=== PATIENT | female | born 1945 | race African-American/Black ===

== ENCOUNTER 2023-06-12 13:52 | Inpatient (IN) | payer OTHER, BC ==
[2023-06-12] MEDS ORDERED: ACETAMINOPHEN INJECTION 100 ML IVPB ONE (16:00)
[2023-06-12] MEDS ORDERED: PIPERACILLIN/TAZOB 3.375 GM 3.375 GM/50 ML BAG IVPB ONE (16:01)
[2023-06-12] MEDS: ACETAMINOPHEN 1000 MG/100 ML BAG IVPB ONE (16:08)
[2023-06-12] MEDS: SODIUM CHLORIDE IV ONE (16:09)
[2023-06-12] MEDS: PIPERACILLIN/TAZOB 3.375 GM 3.375 GM in DEXTROSE 5%-WATER - 50 ML IVPB ONE (16:09)
[2023-06-12 16:11] LABS: HEMATOCRIT 20.5 % (32.4-45.2); MCH 26.6 pg (25.7-33.7); MCHC 31.4 g/dl (32.0-36.0); MEAN CELL VOLUME 84.8 fl (80-96); MEAN PLT VOLUME 8.3 fl (7.5-11.1); PLATELET COUNT 374 10^3/uL (134-434); RBC 2.42 M/mm3 (3.60-5.2); RDW 18.9 % (11.6-15.6)
[2023-06-12 16:21] LABS: CHLORIDE 99 mmol/L (98-107); POTASSIUM 3.8 mmol/L (3.5-5.1); SODIUM 134 mmol/L (136-145)
[2023-06-12 16:22] LABS: INR 2.56 (0.83-1.09); PROTHROMBIN TIME (PATIENT) 29.4 SEC (9.7-13.0)
[2023-06-12 16:23] LABS: ALBUMIN 1.5 g/dl (3.4-5.0); CALCIUM 8.6 mg/dL (8.5-10.1); GLUCOSE,RANDOM 111 mg/dL (74-106)
[2023-06-12 16:24] LABS: ACTIVATED PTT 29.7 SECONDS (25.2-36.5); HEMOGLOBIN 6.4 GM/dL (10.7-15.3)
[2023-06-12 16:25] LABS: ANION GAP 12 mmol/L (4-13); CO2 23 mmol/L (21-32)
[2023-06-12 16:26] LABS: SGPT/ALT 87 U/L (13-61)
[2023-06-12 16:27] LABS: CREATININE 2.1 mg/dL (0.55-1.3); SGOT/AST 160 U/L (15-37)
[2023-06-12 16:28] LABS: BILIRUBIN,TOTAL 0.8 mg/dL (0.2-1); TOT PROT 7.2 g/dl (6.4-8.2)
[2023-06-12 16:29] LABS: ALK PHOS 326 U/L (45-117)
[2023-06-12 16:42] LABS: LACTIC ACID 2.9 mmol/L (0.4-2.0)
[2023-06-12 16:42] LABS: BLOOD UREA NITROGEN 172.8 mg/dL (7-18)
[2023-06-12 18:14] LABS: ANISOCYTOSIS 2+; MACROCYTOSIS 1+; OVALOCYTE 1+; TARGET CELLS 0
[2023-06-12] MEDS ORDERED: VANCOMYCIN 1 GRAM (PRE-DOCKED) 1,000 MG/250 ML BAG IVPB ONE (18:36)
[2023-06-12] MEDS ORDERED: PANTOPRAZOLE SODIUM 40 MG VIAL ONE (18:36)
[2023-06-12] MEDS: PANTOPRAZOLE SODIUM 80 MG in SODIUM CHLORIDE 100 ML IVPB SCH (18:43)
[2023-06-12] MEDS: VANCOMYCIN 1,000 MG in DEXTROSE 5%-WATER - 250 ML IVPB ONE (19:09)
[2023-06-12] MEDS ORDERED: COLLAGENASE CLOSTRIDIUM HIST. 30 GRAMS TUBE TP SCH (19:30)
[2023-06-13] MEDS ORDERED: levETIRAcetam 500 MG/5 ML INJECTION VIAL IVPB ONE ×2 (00:55→10:30)
[2023-06-13] MEDS: SODIUM CHLORIDE 1,000 ML IV SCH (01:05)
[2023-06-13] MEDS: INSULIN ASPART SLIDING SCALE (NOVOLOG) 1 VIAL SQ SCH (01:05)
[2023-06-13] MEDS: levETIRAcetam 500 MG/5 ML INJECTION VIAL IVPB SCH (01:05)
[2023-06-13 01:16] LABS: LACTIC ACID 3.2 mmol/L (0.4-2.0)
[2023-06-13] MEDS ORDERED: PIPERACILLIN/TAZOB 2.25 GM 2.25 GM in DEXTROSE 5%-WATER - 50 ML IVPB SCH (02:00)
[2023-06-13] MEDS ORDERED: PIPERACILLIN/TAZOB 2.25 GM 2.25 GM/50 ML BAG IVPB ONE ×3 (04:40→18:55)
[2023-06-13] MEDS: PIPERACILLIN/TAZOB 2.25 GM 2.25 GM in DEXTROSE 5%-WATER - 50 ML IVPB SCH (04:44)
[2023-06-13] MEDS ORDERED: PANTOPRAZOLE SODIUM 40 MG VIAL ONE (04:47)
[2023-06-13 05:56] LABS: EPI CELLS >36 /uL (0-25.1); HYALINE CASTS 2 /uL (0-3.1); URINE APPEARANCE TURBID; URINE BILIRUBIN 1+ (NEGATIVE); URINE COLOR ORANGE; URINE GLUCOSE (UA) NEGATIVE (NEGATIVE); URINE KETONE NEGATIVE (NEGATIVE); URINE LEUK ESTERASE 3+ (NEGATIVE); URINE NITRITE NEGATIVE (NEGATIVE); URINE PROTEIN 2+ (NEGATIVE); URINE WBC 190 /uL (0-25.8)
[2023-06-13 06:46] LABS: HEMATOCRIT 22.3 % (32.4-45.2); HEMOGLOBIN 7.3 GM/dL (10.7-15.3); MCH 27.9 pg (25.7-33.7); MCHC 32.6 g/dl (32.0-36.0); MEAN CELL VOLUME 85.5 fl (80-96); MEAN PLT VOLUME 7.8 fl (7.5-11.1); PLATELET COUNT 316 10^3/uL (134-434); RBC 2.61 M/mm3 (3.60-5.2); RDW 17.2 % (11.6-15.6); WHITE BLOOD COUNT 10.8 K/mm3 (4.0-10.0)
[2023-06-13 06:48] LABS: INR 2.58 (0.83-1.09); PROTHROMBIN TIME (PATIENT) 29.7 SEC (9.7-13.0)
[2023-06-13 07:30] LABS: CHLORIDE 103 mmol/L (98-107); POTASSIUM 3.4 mmol/L (3.5-5.1); SODIUM 139 mmol/L (136-145)
[2023-06-13 07:38] LABS: CALCIUM 8.2 mg/dL (8.5-10.1)
[2023-06-13 07:39] LABS: ALBUMIN 1.3 g/dl (3.4-5.0); ANION GAP 14 mmol/L (4-13); CO2 22 mmol/L (21-32); GLUCOSE,RANDOM 93 mg/dL (74-106); MAGNESIUM 2.7 mg/dL (1.8-2.4)
[2023-06-13 07:40] LABS: CREATININE 1.8 mg/dL (0.55-1.3)
[2023-06-13 07:41] LABS: SGOT/AST 106 U/L (15-37)
[2023-06-13 07:42] LABS: BILIRUBIN,TOTAL 0.7 mg/dL (0.2-1); PHOSPHOROUS 3.2 mg/dL (2.5-4.9); SGPT/ALT 71 U/L (13-61)
[2023-06-13 07:54] LABS: ALK PHOS 226 U/L (45-117)
[2023-06-13 08:18] LABS: BLOOD UREA NITROGEN 184.2 mg/dL (7-18)
[2023-06-13 09:29] LABS: ANISOCYTOSIS 0; MACROCYTOSIS 0
[2023-06-13] MEDS ORDERED: VANCOMYCIN 750 MG in DEXTROSE 5%-WATER - 150 ML IVPB SCH (10:00)
[2023-06-13] MEDS: VANCOMYCIN/WATER FOR INJ (PEG) 750 MG/150 ML BAG IVPB SCH (11:20)
[2023-06-13 14:50] LABS: URINE BACTERIA 38.9 /uL (0-1359); URINE CRYSTALS CA OXALATE MANY /hpf; URINE RBC 290 /uL (0-23.9)
[2023-06-13] MEDS: POLYETHYLENE GLYCOL (HEALTHYLAX) 3350 17 GM PACKET PEG SCH (15:00)
[2023-06-14] MEDS: PIPERACILLIN/TAZOB 2.25 GM 2.25 GM in DEXTROSE 5%-WATER - 50 ML IVPB SCH (01:13)
[2023-06-14 08:56] LABS: HEMATOCRIT 19.7 % (32.4-45.2); MCH 27.7 pg (25.7-33.7); MCHC 32.9 g/dl (32.0-36.0); MEAN CELL VOLUME 84.1 fl (80-96); MEAN PLT VOLUME 7.7 fl (7.5-11.1); PLATELET COUNT 304 10^3/uL (134-434); RBC 2.35 M/mm3 (3.60-5.2); RDW 16.9 % (11.6-15.6); WHITE BLOOD COUNT 11.2 K/mm3 (4.0-10.0)
[2023-06-14 09:02] LABS: HEMOGLOBIN 6.5 GM/dL (10.7-15.3)
[2023-06-14 09:15] LABS: CHLORIDE 104 mmol/L (98-107); SODIUM 138 mmol/L (136-145)
[2023-06-14 09:18] LABS: CALCIUM 7.9 mg/dL (8.5-10.1); CO2 22 mmol/L (21-32); GAMMA GLUTAMYL TRANSPEPTIDASE 34 U/L (5-85); GLUCOSE,RANDOM 81 mg/dL (74-106)
[2023-06-14 09:19] LABS: ALBUMIN 1.3 g/dl (3.4-5.0)
[2023-06-14 09:21] LABS: IRON SERUM 29 ug/dL (50-175)
[2023-06-14 09:22] LABS: CREATININE 1.7 mg/dL (0.55-1.3); SGOT/AST 97 U/L (15-37); SGPT/ALT 72 U/L (13-61)
[2023-06-14 09:23] LABS: BILIRUBIN,TOTAL 0.8 mg/dL (0.2-1); TOTAL IRON BINDING CAPACITY 134 ug/dL (250-450)
[2023-06-14 10:00] LABS: ALK PHOS 193 U/L (45-117); ANION GAP 12 mmol/L (4-13); BLOOD UREA NITROGEN 161.5 mg/dL (7-18); POTASSIUM 2.9 mmol/L (3.5-5.1)
[2023-06-14] MEDS ORDERED: KCL 20 MEQ PREMIX BAG 20 MEQ/100 ML INFUS.BAG IVPB SCH (10:30)
[2023-06-14 10:31] LABS: ANISOCYTOSIS 2+; MACROCYTOSIS 0
[2023-06-14] MEDS: PANTOPRAZOLE SODIUM 40 MG VIAL IVPUSH SCH (10:47)
[2023-06-14] MEDS: POTASSIUM CHLORIDE ORAL LIQUID 20 MEQ/15 ML PO ONE (11:28)
[2023-06-14] MEDS: DEXTROSE 5%-NORMAL SALINE 1,000 ML IV SCH (13:48)
[2023-06-14] MEDS: AMINO ACIDS/PROTEIN HYDROLYS 30 ML LIQUID.PKT GT SCH (14:28)
[2023-06-14] MEDS: VITAMIN B COMP W-C 1 EA TABLET (NEPHRO-VITE) GT SCH (14:28)
[2023-06-14 18:57] LABS: BASO % 0.2 % (0-2.0); EOS % 2.1 % (0-4.5); HEMATOCRIT 22.7 % (32.4-45.2); HEMOGLOBIN 7.4 GM/dL (10.7-15.3); LYMPH % 3.8 % (8-40); MCH 27.6 pg (25.7-33.7); MCHC 32.6 g/dl (32.0-36.0); MEAN CELL VOLUME 84.6 fl (80-96); MEAN PLT VOLUME 7.4 fl (7.5-11.1); NEUT % 87.9 % (42.8-82.8); PLATELET COUNT 276 10^3/uL (134-434); RBC 2.68 M/mm3 (3.60-5.2); RDW 16.3 % (11.6-15.6)
[2023-06-14 19:55] LABS: ANISOCYTOSIS 1+; MACROCYTOSIS 1+; OVALOCYTE 1+; TEAR DROP CELLS 1+
[2023-06-14 20:01] LABS: PLATELET ESTIMATE ADEQUATE
[2023-06-14] MEDS: POTASSIUM CHLORIDE ORAL LIQUID 20 MEQ/15 ML PO SCH (22:31)
[2023-06-15 10:17] LABS: CHLORIDE 107 mmol/L (98-107); POTASSIUM 3.5 mmol/L (3.5-5.1); SODIUM 138 mmol/L (136-145)
[2023-06-15 10:25] LABS: ALBUMIN 1.2 g/dl (3.4-5.0); ANION GAP 11 mmol/L (4-13); CALCIUM 7.4 mg/dL (8.5-10.1); CO2 20 mmol/L (21-32); GLUCOSE,RANDOM 147 mg/dL (74-106)
[2023-06-15 10:29] LABS: CREATININE 1.7 mg/dL (0.55-1.3); SGOT/AST 89 U/L (15-37); SGPT/ALT 70 U/L (13-61)
[2023-06-15 10:30] LABS: BILIRUBIN,TOTAL 0.9 mg/dL (0.2-1); TOT PROT 5.7 g/dl (6.4-8.2)
[2023-06-15 10:31] LABS: ALK PHOS 215 U/L (45-117)
[2023-06-15 10:52] LABS: BLOOD UREA NITROGEN 177.1 mg/dL (7-18)
[2023-06-15] MEDS: DEXTROSE 5%-NORMAL SALINE 1,000 ML IV SCH (16:19)
[2023-06-15] MEDS: POLYETHYLENE GLYCOL (HEALTHYLAX) 3350 17 GM PACKET PEG SCH (21:41)
[2023-06-16 09:24] LABS: CHLORIDE 112 mmol/L (98-107); POTASSIUM 3.8 mmol/L (3.5-5.1); SODIUM 143 mmol/L (136-145)
[2023-06-16 09:37] LABS: ALBUMIN 1.3 g/dl (3.4-5.0); ANION GAP 10 mmol/L (4-13); CALCIUM 7.7 mg/dL (8.5-10.1); CO2 21 mmol/L (21-32); GLUCOSE,RANDOM 146 mg/dL (74-106); HEMATOCRIT 21.8 % (32.4-45.2); HEMOGLOBIN 7.1 GM/dL (10.7-15.3); MAGNESIUM 2.8 mg/dL (1.8-2.4); MCH 28.1 pg (25.7-33.7); MCHC 32.5 g/dl (32.0-36.0); MEAN CELL VOLUME 86.4 fl (80-96); MEAN PLT VOLUME 7.7 fl (7.5-11.1); PLATELET COUNT 296 10^3/uL (134-434); RBC 2.53 M/mm3 (3.60-5.2); RDW 16.7 % (11.6-15.6); WHITE BLOOD COUNT 11.8 K/mm3 (4.0-10.0)
[2023-06-16 09:38] LABS: SGOT/AST 73 U/L (15-37); SGPT/ALT 66 U/L (13-61)
[2023-06-16 09:40] LABS: CREATININE 1.5 mg/dL (0.55-1.3)
[2023-06-16 09:42] LABS: BILIRUBIN,TOTAL 0.7 mg/dL (0.2-1); TOT PROT 5.9 g/dl (6.4-8.2)
[2023-06-16 10:07] LABS: ALK PHOS 260 U/L (45-117); BLOOD UREA NITROGEN 162.3 mg/dL (7-18)
[2023-06-16 11:50] LABS: ANISOCYTOSIS 0; HELMET CELLS 0; HOWELL-JOLLY BODIES 0; MACROCYTOSIS 0; OVALOCYTE 0; ROULEAU 0; SICKELED CELLS 0; TARGET CELLS 0; TEAR DROP CELLS 0; TOXIC GRANULATION 0
[2023-06-17 08:47] LABS: HEMATOCRIT 26.5 % (32.4-45.2); HEMOGLOBIN 8.9 GM/dL (10.7-15.3); MCH 28.5 pg (25.7-33.7); MCHC 33.4 g/dl (32.0-36.0); MEAN CELL VOLUME 85.4 fl (80-96); MEAN PLT VOLUME 7.4 fl (7.5-11.1); PLATELET COUNT 314 10^3/uL (134-434); RBC 3.11 M/mm3 (3.60-5.2); RDW 17.5 % (11.6-15.6); WHITE BLOOD COUNT 10.3 K/mm3 (4.0-10.0)
[2023-06-17 09:10] LABS: CHLORIDE 117 mmol/L (98-107); POTASSIUM 4.4 mmol/L (3.5-5.1); SODIUM 146 mmol/L (136-145)
[2023-06-17 09:13] LABS: CALCIUM 7.6 mg/dL (8.5-10.1)
[2023-06-17 09:14] LABS: ALBUMIN 1.2 g/dl (3.4-5.0); ANION GAP 7 mmol/L (4-13); CO2 23 mmol/L (21-32); GLUCOSE,RANDOM 132 mg/dL (74-106); MAGNESIUM 2.8 mg/dL (1.8-2.4)
[2023-06-17 09:17] LABS: CREATININE 1.4 mg/dL (0.55-1.3); SGOT/AST 70 U/L (15-37); SGPT/ALT 66 U/L (13-61)
[2023-06-17 09:18] LABS: BILIRUBIN,TOTAL 0.6 mg/dL (0.2-1); TOT PROT 5.9 g/dl (6.4-8.2)
[2023-06-17 09:20] LABS: ALK PHOS 231 U/L (45-117)
[2023-06-17 09:22] LABS: BLOOD UREA NITROGEN 147.5 mg/dL (7-18)
[2023-06-17 10:59] LABS: ANISOCYTOSIS 0; HELMET CELLS 0; HOWELL-JOLLY BODIES 0; MACROCYTOSIS 0; OVALOCYTE 0; ROULEAU 0; SICKELED CELLS 0; TARGET CELLS 0; TEAR DROP CELLS 0; TOXIC GRANULATION 0
[2023-06-17] MEDS: TOBRAMYCIN 0.3% OPHTH SOLN 5 ML BOTTLE OU SCH (14:16)
[2023-06-17] MEDS: DEXTROSE 5%-0.45% SALINE 1,000 ML IV SCH (18:55)
[2023-06-17] MEDS: TETRAHYDROZOLINE HCL EYE DROPS OU SCH (19:06)
[2023-06-18] MEDS: POTASSIUM CHLORIDE ORAL LIQUID 20 MEQ/15 ML PO SCH (09:22)
[2023-06-18 09:25] LABS: BASO % 0.1 % (0-2.0); EOS % 0.3 % (0-4.5); HEMATOCRIT 31.5 % (32.4-45.2); LYMPH % 6.8 % (8-40); MCH 27.5 pg (25.7-33.7); MCHC 31.6 g/dl (32.0-36.0); MEAN CELL VOLUME 87.1 fl (80-96); MEAN PLT VOLUME 7.4 fl (7.5-11.1); MONO % 5.8 % (3.8-10.2); PLATELET COUNT 351 10^3/uL (134-434); RBC 3.62 M/mm3 (3.60-5.2); WHITE BLOOD COUNT 13.5 K/mm3 (4.0-10.0)
[2023-06-18 09:37] LABS: INR 1.44 (0.83-1.09); PROTHROMBIN TIME (PATIENT) 16.6 SEC (9.7-13.0)
[2023-06-18 09:56] LABS: CHLORIDE 120 mmol/L (98-107); POTASSIUM 4.3 mmol/L (3.5-5.1); SODIUM 149 mmol/L (136-145)
[2023-06-18 10:19] LABS: CALCIUM 8.1 mg/dL (8.5-10.1)
[2023-06-18 10:20] LABS: ALBUMIN 1.3 g/dl (3.4-5.0); ANION GAP 9 mmol/L (4-13); CO2 20 mmol/L (21-32); GLUCOSE,RANDOM 111 mg/dL (74-106); MAGNESIUM 2.5 mg/dL (1.8-2.4)
[2023-06-18 10:22] LABS: CREATININE 1.2 mg/dL (0.55-1.3); SGOT/AST 75 U/L (15-37); SGPT/ALT 75 U/L (13-61)
[2023-06-18 10:24] LABS: BILIRUBIN,TOTAL 0.5 mg/dL (0.2-1); TOT PROT 6.2 g/dl (6.4-8.2)
[2023-06-18 10:33] LABS: ALK PHOS 189 U/L (45-117); BLOOD UREA NITROGEN 129.6 mg/dL (7-18)
[2023-06-18] MEDS ORDERED: LIDOCAINE HCL 2% (20ML MULTI-DOSE VIAL) ONE (12:29)
[2023-06-18 16:04] VITALS: BMI 22.6
[2023-06-19 09:21] LABS: BASO % 0.2 % (0-2.0); EOS % 0.4 % (0-4.5); HEMATOCRIT 27.5 % (32.4-45.2); HEMOGLOBIN 8.9 GM/dL (10.7-15.3); MCH 28.2 pg (25.7-33.7); MCHC 32.4 g/dl (32.0-36.0); MEAN CELL VOLUME 87.1 fl (80-96); MEAN PLT VOLUME 7.5 fl (7.5-11.1); MONO % 6.1 % (3.8-10.2); NEUT % 85.3 % (42.8-82.8); PLATELET COUNT 311 10^3/uL (134-434); RBC 3.16 M/mm3 (3.60-5.2); RDW 18.2 % (11.6-15.6)
[2023-06-19 09:26] LABS: INR 1.47 (0.83-1.09)
[2023-06-19 10:09] LABS: CHLORIDE 120 mmol/L (98-107); POTASSIUM 4.5 mmol/L (3.5-5.1); SODIUM 148 mmol/L (136-145)
[2023-06-19 10:18] LABS: ALBUMIN 1.3 g/dl (3.4-5.0); ANION GAP 7 mmol/L (4-13); CALCIUM 7.6 mg/dL (8.5-10.1); CO2 21 mmol/L (21-32); MAGNESIUM 2.2 mg/dL (1.8-2.4)
[2023-06-19 10:19] LABS: GLUCOSE,RANDOM 139 mg/dL (74-106)
[2023-06-19 10:21] LABS: CREATININE 1.1 mg/dL (0.55-1.3)
[2023-06-19 10:22] LABS: SGOT/AST 72 U/L (15-37); SGPT/ALT 75 U/L (13-61)
[2023-06-19 10:23] LABS: BILIRUBIN,TOTAL 0.3 mg/dL (0.2-1); TOT PROT 6.1 g/dl (6.4-8.2)
[2023-06-19 10:25] LABS: ALK PHOS 175 U/L (45-117)
[2023-06-19 10:45] LABS: BLOOD UREA NITROGEN 106.5 mg/dL (7-18)
[2023-06-19] MEDS: TUBE FEED DECLOGGING SOLUTION 12,000 UNITS GT ONE (14:31)
[2023-06-19] MEDS: ARTIFICIAL TEARS OPHTHALMIC DROPS OU SCH (21:33)
[2023-06-19] MEDS: ATORVASTATIN CA 40 MG TABLET (FP) GT SCH (21:35)
[2023-06-19] MEDS: levETIRAcetam 500 MG/5 ML ORAL SOLUTION (UNIT-DOSE CUPS) GT SCH (21:35)
[2023-06-20] MEDS: LEVOTHYROXINE NA 50 MCG TABLET (FP) GT SCH (05:59)
[2023-06-20 08:40] LABS: BASO % 0.4 % (0-2.0); EOS % 0.6 % (0-4.5); HEMATOCRIT 29.3 % (32.4-45.2); HEMOGLOBIN 9.3 GM/dL (10.7-15.3); LYMPH % 8.7 % (8-40); MCH 27.9 pg (25.7-33.7); MCHC 31.8 g/dl (32.0-36.0); MEAN CELL VOLUME 87.8 fl (80-96); MEAN PLT VOLUME 7.4 fl (7.5-11.1); NEUT % 83.3 % (42.8-82.8); PLATELET COUNT 304 10^3/uL (134-434); RBC 3.34 M/mm3 (3.60-5.2); RDW 18.1 % (11.6-15.6); WHITE BLOOD COUNT 10.1 K/mm3 (4.0-10.0)
[2023-06-20 08:46] LABS: INR 1.51 (0.83-1.09); PROTHROMBIN TIME (PATIENT) 17.4 SEC (9.7-13.0)
[2023-06-20 09:31] LABS: POTASSIUM 3.9 mmol/L (3.5-5.1)
[2023-06-20 09:33] LABS: ALBUMIN 1.3 g/dl (3.4-5.0); BLOOD UREA NITROGEN 92.5 mg/dL (7-18); CALCIUM 8.2 mg/dL (8.5-10.1); MAGNESIUM 2.1 mg/dL (1.8-2.4)
[2023-06-20 09:36] LABS: CREATININE 0.9 mg/dL (0.55-1.3)
[2023-06-20 09:38] LABS: BILIRUBIN,TOTAL 0.5 mg/dL (0.2-1)
[2023-06-20] MEDS ORDERED: ONDANSETRON 4 MG/2 ML VIAL IVPUSH PRN ×2 (10:46→12:36)
[2023-06-20] MEDS ORDERED: DEXAMETHASONE SOD PHOSPHATE 4 MG/1 ML VIAL ONE (11:38)
[2023-06-20] MEDS ORDERED: ONDANSETRON 4 MG/2 ML VIAL ONE (11:38)
[2023-06-20] MEDS ORDERED: ACETAMINOPHEN INJECTION 100 ML IVPB ONE (11:39)
[2023-06-20] MEDS: DEXTROSE 5%-0.45% SALINE 1,000 ML IV SCH (13:05)
[2023-06-20] MEDS: TOBRAMYCIN 0.3% OPHTH SOLN 5 ML BOTTLE OU SCH (14:00)
[2023-06-20] MEDS: PIPERACILLIN/TAZOB 2.25 GM 2.25 GM in DEXTROSE 5%-WATER - 50 ML IVPB SCH (17:02)
[2023-06-20] MEDS: ATORVASTATIN CA 40 MG TABLET (FP) GT SCH (21:58)
[2023-06-20] MEDS: levETIRAcetam 500 MG/5 ML ORAL SOLUTION (UNIT-DOSE CUPS) GT SCH (21:58)
[2023-06-20] MEDS: POLYETHYLENE GLYCOL (HEALTHYLAX) 3350 17 GM PACKET PEG SCH (21:58)
[2023-06-20] MEDS: ARTIFICIAL TEARS OPHTHALMIC DROPS OU SCH (22:01)
[2023-06-20] MEDS: INSULIN ASPART SLIDING SCALE (NOVOLOG) 1 VIAL SQ SCH (22:19)
[2023-06-21] MEDS: LEVOTHYROXINE NA 50 MCG TABLET (FP) GT SCH (06:01)
[2023-06-21] MEDS: POTASSIUM CHLORIDE ORAL LIQUID 20 MEQ/15 ML PO SCH (09:26)
[2023-06-21] MEDS: AMINO ACIDS/PROTEIN HYDROLYS 30 ML LIQUID.PKT GT SCH (09:26)
[2023-06-21] MEDS: VITAMIN B COMP W-C 1 EA TABLET (NEPHRO-VITE) GT SCH (09:27)
[2023-06-21] MEDS: PANTOPRAZOLE SODIUM 40 MG VIAL IVPUSH SCH (09:27)
[2023-06-21 10:13] LABS: BASO % 0.1 % (0-2.0); EOS % 0.2 % (0-4.5); HEMATOCRIT 27.1 % (32.4-45.2); HEMOGLOBIN 8.5 GM/dL (10.7-15.3); LYMPH % 8.1 % (8-40); MCH 27.7 pg (25.7-33.7); MCHC 31.3 g/dl (32.0-36.0); MEAN CELL VOLUME 88.6 fl (80-96); MEAN PLT VOLUME 7.7 fl (7.5-11.1); NEUT % 84.6 % (42.8-82.8); PLATELET COUNT 279 10^3/uL (134-434); RBC 3.05 M/mm3 (3.60-5.2); RDW 18.4 % (11.6-15.6)
[2023-06-21 10:41] LABS: POTASSIUM 4.6 mmol/L (3.5-5.1)
[2023-06-21 10:46] LABS: CALCIUM 7.9 mg/dL (8.5-10.1)
[2023-06-21 10:47] LABS: ALBUMIN 1.2 g/dl (3.4-5.0); BLOOD UREA NITROGEN 84.4 mg/dL (7-18)
[2023-06-21 10:52] LABS: BILIRUBIN,TOTAL 0.3 mg/dL (0.2-1); TOT PROT 5.6 g/dl (6.4-8.2)
[2023-06-22 08:24] LABS: BASO % 0.3 % (0-2.0); EOS % 0.5 % (0-4.5); HEMATOCRIT 28.7 % (32.4-45.2); HEMOGLOBIN 9.4 GM/dL (10.7-15.3); LYMPH % 9.8 % (8-40); MCHC 32.9 g/dl (32.0-36.0); MEAN CELL VOLUME 88.1 fl (80-96); MEAN PLT VOLUME 7.8 fl (7.5-11.1); MONO % 5.6 % (3.8-10.2); NEUT % 83.8 % (42.8-82.8); PLATELET COUNT 301 10^3/uL (134-434); RBC 3.26 M/mm3 (3.60-5.2); RDW 18.2 % (11.6-15.6); WHITE BLOOD COUNT 9.1 K/mm3 (4.0-10.0)
[2023-06-22 09:11] LABS: POTASSIUM 4.6 mmol/L (3.5-5.1)
[2023-06-22 09:16] LABS: ALBUMIN 1.3 g/dl (3.4-5.0); BLOOD UREA NITROGEN 75.1 mg/dL (7-18); CALCIUM 7.9 mg/dL (8.5-10.1)
[2023-06-22 09:19] LABS: CREATININE 0.8 mg/dL (0.55-1.3)
[2023-06-22 09:21] LABS: BILIRUBIN,TOTAL 0.3 mg/dL (0.2-1)
[2023-06-22] MEDS: AMOX TR/POT CLAV 875MG/125MG TABLETS (FP) PO SCH (09:41)
[2023-06-23] MEDS: FUROSEMIDE 20 MG TABLET (FP) GT SCH (12:53)
[2023-06-24 09:09] LABS: BASO % 0.4 % (0-2.0); EOS % 0.6 % (0-4.5); HEMATOCRIT 28.4 % (32.4-45.2); LYMPH % 12.6 % (8-40); MCH 28.6 pg (25.7-33.7); MCHC 31.8 g/dl (32.0-36.0); MEAN CELL VOLUME 90.1 fl (80-96); MEAN PLT VOLUME 8.5 fl (7.5-11.1); MONO % 6.5 % (3.8-10.2); NEUT % 79.9 % (42.8-82.8); PLATELET COUNT 241 10^3/uL (134-434); RBC 3.15 M/mm3 (3.60-5.2); RDW 19.4 % (11.6-15.6); WHITE BLOOD COUNT 9.2 K/mm3 (4.0-10.0)
[2023-06-24 09:23] LABS: POTASSIUM 4.3 mmol/L (3.5-5.1)
[2023-06-24 09:28] LABS: ALBUMIN 1.4 g/dl (3.4-5.0); BLOOD UREA NITROGEN 54.6 mg/dL (7-18); CALCIUM 7.8 mg/dL (8.5-10.1); MAGNESIUM 1.7 mg/dL (1.8-2.4)
[2023-06-24 09:31] LABS: CREATININE 0.7 mg/dL (0.55-1.3); PHOSPHOROUS 2.5 mg/dL (2.5-4.9)
[2023-06-24 09:32] LABS: TOT PROT 6.1 g/dl (6.4-8.2)
[2023-06-24 09:33] LABS: BILIRUBIN,TOTAL 0.3 mg/dL (0.2-1)
[2023-06-24] MEDS: MAGNESIUM SULF 50% (8.12 MEQ/2 ML-1 GM VIAL) IVPB ONE (11:16)
[2023-06-24] MEDS: MAGNESIUM OXIDE 400 MG TABLET (FP) PO ONE (15:02)
[2023-06-25] MEDS: ACETAMINOPHEN 1000 MG/100 ML BAG IVPB ONE (16:11)
[2023-06-26 08:36] LABS: BASO % 0.7 % (0-2.0); EOS % 1.2 % (0-4.5); HEMATOCRIT 24.7 % (32.4-45.2); LYMPH % 15.7 % (8-40); MCH 28.4 pg (25.7-33.7); MCHC 32.2 g/dl (32.0-36.0); MEAN CELL VOLUME 88.2 fl (80-96); MEAN PLT VOLUME 8.3 fl (7.5-11.1); MONO % 9.9 % (3.8-10.2); NEUT % 72.5 % (42.8-82.8); PLATELET COUNT 291 10^3/uL (134-434); RDW 19.6 % (11.6-15.6); WHITE BLOOD COUNT 8.1 K/mm3 (4.0-10.0)
[2023-06-26 08:53] LABS: POTASSIUM 4.6 mmol/L (3.5-5.1)
[2023-06-26 09:00] LABS: CALCIUM 8.1 mg/dL (8.5-10.1)
[2023-06-26 09:01] LABS: ALBUMIN 1.3 g/dl (3.4-5.0); BLOOD UREA NITROGEN 46.3 mg/dL (7-18)
[2023-06-26 09:03] LABS: BILIRUBIN,TOTAL 0.3 mg/dL (0.2-1); TOT PROT 5.8 g/dl (6.4-8.2)
[2023-06-26 09:04] LABS: CREATININE 0.6 mg/dL (0.55-1.3)
[2023-06-27 10:36] LABS: HEMATOCRIT 22.2 % (32.4-45.2); HEMOGLOBIN 7.2 GM/dL (10.7-15.3); MCH 28.5 pg (25.7-33.7); MCHC 32.5 g/dl (32.0-36.0); MEAN CELL VOLUME 87.5 fl (80-96); MEAN PLT VOLUME 8.3 fl (7.5-11.1); PLATELET COUNT 284 10^3/uL (134-434); RBC 2.54 M/mm3 (3.60-5.2); RDW 19.6 % (11.6-15.6); WHITE BLOOD COUNT 6.9 K/mm3 (4.0-10.0)
[2023-06-27 10:57] LABS: POTASSIUM 4.5 mmol/L (3.5-5.1)
[2023-06-27 11:00] LABS: CALCIUM 8.1 mg/dL (8.5-10.1)
[2023-06-27 11:01] LABS: ALBUMIN 1.3 g/dl (3.4-5.0); BLOOD UREA NITROGEN 43.6 mg/dL (7-18)
[2023-06-27 11:04] LABS: CREATININE 0.6 mg/dL (0.55-1.3)
[2023-06-27 11:05] LABS: BILIRUBIN,TOTAL 0.2 mg/dL (0.2-1); TOT PROT 5.7 g/dl (6.4-8.2)
[2023-06-27] MEDS: ACETAMINOPHEN 650 MG/20.3 ML ORAL SOLUTION (CUPS) GT ONE (18:54)
[2023-06-28 09:22] LABS: HEMATOCRIT 25.5 % (32.4-45.2); HEMOGLOBIN 8.2 GM/dL (10.7-15.3); MCH 28.6 pg (25.7-33.7); MCHC 32.3 g/dl (32.0-36.0); MEAN CELL VOLUME 88.4 fl (80-96); MEAN PLT VOLUME 8.5 fl (7.5-11.1); PLATELET COUNT 282 10^3/uL (134-434); RBC 2.89 M/mm3 (3.60-5.2); RDW 19.3 % (11.6-15.6); WHITE BLOOD COUNT 6.9 K/mm3 (4.0-10.0)
[2023-06-28 09:46] LABS: POTASSIUM 4.7 mmol/L (3.5-5.1)
[2023-06-28 09:53] LABS: CALCIUM 8.1 mg/dL (8.5-10.1)
[2023-06-28 09:55] LABS: ALBUMIN 1.4 g/dl (3.4-5.0); BLOOD UREA NITROGEN 40.7 mg/dL (7-18)
[2023-06-28 09:58] LABS: CREATININE 0.7 mg/dL (0.55-1.3)
[2023-06-28 09:59] LABS: BILIRUBIN,TOTAL 0.3 mg/dL (0.2-1)
[2023-06-28 19:31] VITALS: BP 117/61; PULSE 113; RESP 18; TEMP 99.1
== END 2023-06-28 20:50 | DRG 853 ==
LOC: JER 13:52 → JERBED 18:22 → J5S 06-13 20:48
PROVIDERS: ADMIT Internal Medicine
PROC: 5A1955Z Respiratory Ventilation, Greater than 96 Consecutive Hours (ICD-10-PCS; principal; 2023-06-12)
PROC: 0KBN0ZZ Excision of Right Hip Muscle, Open Approach (ICD-10-PCS; 2023-06-12)
PROC: 30233N1 Transfusion of Nonautologous Red Blood Cells into Peripheral Vein, Percutaneous Approach (ICD-10-PCS; 2023-06-13)
PROC: 0KBP0ZZ Excision of Left Hip Muscle, Open Approach (ICD-10-PCS; 2023-06-20)
DX: A41.89 Other specified sepsis (principal); L89.154 Pressure ulcer of sacral region, stage 4; N17.9 Acute kidney failure, unspecified; J96.10 Chronic respiratory failure, unspecified whether with hypoxia or hypercapnia; K92.2 Gastrointestinal hemorrhage, unspecified; G93.1 Anoxic brain damage, not elsewhere classified; I13.0 Hypertensive heart and chronic kidney disease with heart failure and stage 1 through stage 4 chronic kidney disease, or unspecified chronic kidney disease; D62 Acute posthemorrhagic anemia; J96.11 Chronic respiratory failure with hypoxia; J98.11 Atelectasis; E03.9 Hypothyroidism, unspecified; F03.90 Unspecified dementia, unspecified severity, without behavioral disturbance, psychotic disturbance, mood disturbance, and anxiety; E78.5 Hyperlipidemia, unspecified; K56.41 Fecal impaction; G40.909 Epilepsy, unspecified, not intractable, without status epilepticus; J45.909 Unspecified asthma, uncomplicated; R13.10 Dysphagia, unspecified; K64.8 Other hemorrhoids; R79.89 Other specified abnormal findings of blood chemistry; E11.22 Type 2 diabetes mellitus with diabetic chronic kidney disease; N18.9 Chronic kidney disease, unspecified; B95.2 Enterococcus as the cause of diseases classified elsewhere; B96.20 Unspecified Escherichia coli [E. coli] as the cause of diseases classified elsewhere; B96.1 Klebsiella pneumoniae [K. pneumoniae] as the cause of diseases classified elsewhere; I50.9 Heart failure, unspecified; Z93.1 Gastrostomy status; Z93.0 Tracheostomy status; Z71.89 Other specified counseling
CPT/HCPCS: 0241U-QW; 36415; 36430; 71045-TC-FY; 71250-TC; 74176-TC; 76700-TC; 80053; 81003; 82272; 82550; 82553; 82728; 82962; 82977; 83540; 83550; 83605; 83735; 84100; 84132; 85025; 85027; 85610; 85730; 86704; 86803; 86850; 86900; 86901; 86922; 87040; 87070; 87076; 87086; 87186; 87205; 87340; 87517; 87635; 87899; 93005; 93010; 93306-TC; 94002; 94760; 99291; J0131; P9038; P9058

== ENCOUNTER 2023-08-31 18:21 | Inpatient (IN) | payer OTHER, BC ==
[2023-08-31 18:46] VITALS: BMI 30.1
[2023-08-31 20:22] LABS: BASO % 0.3 % (0-2.0); EOS % 1.5 % (0-4.5); HEMATOCRIT 21.6 % (32.4-45.2); LYMPH % 23.2 % (8-40); MCH 28.9 pg (25.7-33.7); MCHC 32.5 g/dl (32.0-36.0); MEAN CELL VOLUME 89.1 fl (80-96); MEAN PLT VOLUME 8.1 fl (7.5-11.1); MONO % 15.9 % (3.8-10.2); NEUT % 59.1 % (42.8-82.8); PLATELET COUNT 554 10^3/uL (134-434); RBC 2.43 M/mm3 (3.60-5.2); RDW 18.7 % (11.6-15.6); WHITE BLOOD COUNT 6.3 K/mm3 (4.0-10.0)
[2023-08-31 20:46] LABS: POTASSIUM 5.6 mmol/L (3.5-5.1)
[2023-08-31 20:47] LABS: CALCIUM 8.7 mg/dL (8.5-10.1)
[2023-08-31 20:48] LABS: ALBUMIN 1.4 g/dl (3.4-5.0); BLOOD UREA NITROGEN 42.3 mg/dL (7-18)
[2023-08-31 20:51] LABS: CREATININE 0.9 mg/dL (0.55-1.3)
[2023-08-31 20:53] LABS: BILIRUBIN,TOTAL 0.4 mg/dL (0.2-1); TOT PROT 7.2 g/dl (6.4-8.2)
[2023-08-31] MEDS: PIPERACILLIN/TAZOB 3.375 GM 3.375 GM in DEXTROSE 5%-WATER - 50 ML IVPB ONE (22:11)
[2023-08-31] MEDS ORDERED: PIPERACILLIN/TAZOB 4.5 GM 4.5 GM/100 ML BAG IVPB ONE (22:12)
[2023-08-31] MEDS ORDERED: VANCOMYCIN 1 GRAM (PRE-DOCKED) 1,000 MG/250 ML BAG IVPB ONE (22:13)
[2023-08-31] MEDS: PIPERACILLIN/TAZOB 4.5 GM 4.5 GM in DEXTROSE 5%-WATER 100 ML IVPB ONE (22:15)
[2023-08-31] MEDS: VANCOMYCIN 1,000 MG in DEXTROSE 5%-WATER - 250 ML IVPB ONE (22:50)
[2023-09-01] MEDS ORDERED: VANCOMYCIN 1,000 MG in DEXTROSE 5%-WATER - 250 ML IVPB SCH ×2 (02:00→22:00)
[2023-09-01 02:07] LABS: BASO % 0.6 % (0-2.0); EOS % 1.1 % (0-4.5); HEMATOCRIT 20.5 % (32.4-45.2); LYMPH % 20.3 % (8-40); MCHC 31.9 g/dl (32.0-36.0); MEAN CELL VOLUME 90.7 fl (80-96); MEAN PLT VOLUME 6.7 fl (7.5-11.1); MONO % 16.2 % (3.8-10.2); NEUT % 61.8 % (42.8-82.8); PLATELET COUNT 399 10^3/uL (134-434); RBC 2.26 M/mm3 (3.60-5.2); RDW 17.8 % (11.6-15.6); WHITE BLOOD COUNT 6.1 K/mm3 (4.0-10.0)
[2023-09-01 02:19] LABS: HEMOGLOBIN 6.5 GM/dL (10.7-15.3)
[2023-09-01 02:28] LABS: POTASSIUM 4.1 mmol/L (3.5-5.1)
[2023-09-01 02:30] LABS: CALCIUM 8.5 mg/dL (8.5-10.1)
[2023-09-01 02:31] LABS: ALBUMIN 1.5 g/dl (3.4-5.0); MAGNESIUM 2.2 mg/dL (1.8-2.4)
[2023-09-01 02:34] LABS: CREATININE 0.7 mg/dL (0.55-1.3); PHOSPHOROUS 3.7 mg/dL (2.5-4.9)
[2023-09-01 02:36] LABS: BILIRUBIN,TOTAL 0.5 mg/dL (0.2-1)
[2023-09-01] MEDS ORDERED: ACETAMINOPHEN 1000 MG/100 ML BAG IVPB PRN (05:58)
[2023-09-01] MEDS: ARTIFICIAL TEARS OPHTHALMIC DROPS OU SCH (06:34)
[2023-09-01] MEDS: INSULIN ASPART SLIDING SCALE (NOVOLOG) 1 VIAL SQ SCH (06:34)
[2023-09-01] MEDS: LEVOTHYROXINE NA 50 MCG TABLET (FP) GT SCH (06:35)
[2023-09-01] MEDS ORDERED: INSULIN ASPART SLIDING SCALE (NOVOLOG) 1 VIAL SQ SCH (07:00)
[2023-09-01 07:02] LABS: RETICULOCYTES 3.14 % (0.5-1.5)
[2023-09-01] MEDS ORDERED: FUROSEMIDE 40 MG/4 ML INJECTABLE VIAL IVPUSH SCH (10:00)
[2023-09-01] MEDS ORDERED: APIXABAN 5 MG TABLET GT SCH (10:00)
[2023-09-01 10:07] LABS: INR 1.97 (0.83-1.09); PROTHROMBIN TIME (PATIENT) 21.8 SEC (9.7-13.0)
[2023-09-01 10:10] LABS: ACTIVATED PTT 38.8 SECONDS (25.2-36.5)
[2023-09-01 10:14] LABS: BASO % 0.7 % (0-2.0); EOS % 0.7 % (0-4.5); HEMATOCRIT 24.4 % (32.4-45.2); HEMOGLOBIN 7.8 GM/dL (10.7-15.3); MCH 28.4 pg (25.7-33.7); MEAN CELL VOLUME 88.8 fl (80-96); MEAN PLT VOLUME 7.1 fl (7.5-11.1); MONO % 15.7 % (3.8-10.2); NEUT % 61.9 % (42.8-82.8); PLATELET COUNT 365 10^3/uL (134-434); RBC 2.74 M/mm3 (3.60-5.2); RDW 17.1 % (11.6-15.6)
[2023-09-01 10:22] LABS: MAGNESIUM 2.2 mg/dL (1.8-2.4)
[2023-09-01] MEDS: PIPERACILLIN/TAZOB 3.375 GM 3.375 GM in DEXTROSE 5%-WATER - 50 ML IVPB SCH ×2 (10:27→19:01)
[2023-09-01] MEDS: PANTOPRAZOLE SODIUM 40 MG VIAL IVPUSH SCH (10:37)
[2023-09-01] MEDS: traMADol HCL 50 MG TABLET PEG SCH (10:38)
[2023-09-01] MEDS: FERROUS SO4 300 MG/5 ML ORAL SOLN UNIT DOSE CUPS GT SCH (10:38)
[2023-09-01] MEDS: FUROSEMIDE 40 MG/4 ML INJECTABLE VIAL IVPUSH SCH (10:38)
[2023-09-01] MEDS: METOPROLOL TARTRATE 25 MG TABLET (FP) GT SCH (10:38)
[2023-09-01] MEDS ORDERED: traMADol HCL 50 MG TABLET PO PRN (10:42)
[2023-09-01] MEDS ORDERED: FERROUS SO4 300 MG/5 ML ORAL SOLN UNIT DOSE CUPS GT SCH (10:45)
[2023-09-01] MEDS ORDERED: traMADol HCL 50 MG TABLET PEG PRN (10:47)
[2023-09-01] MEDS: ASCORBIC ACID 500 MG/5 ML UNIT DOSE CUP GT SCH (11:01)
[2023-09-01] MEDS: POLYETHYLENE GLYCOL (HEALTHYLAX) 3350 17 GM PACKET GT SCH (11:01)
[2023-09-01] MEDS: VANCOMYCIN/WATER FOR INJ (PEG) 1,000 MG/200 ML BAG IVPB SCH (11:08)
[2023-09-01] MEDS: levETIRAcetam 500 MG/5 ML ORAL SOLUTION (UNIT-DOSE CUPS) GT SCH ×2 (11:21→21:57)
[2023-09-01] MEDS: ACETAMINOPHEN 650 MG/20.3 ML ORAL SOLUTION (CUPS) GT SCH (13:18)
[2023-09-01] MEDS: ATORVASTATIN CA 40 MG TABLET (FP) GT SCH (21:57)
[2023-09-01] MEDS ORDERED: PIPERACILLIN/TAZOB 3.375 GM 3.375 GM in DEXTROSE 5%-WATER - 50 ML IVPB SCH (22:00)
[2023-09-02] MEDS: LEVOTHYROXINE NA 75 MCG TABLET (FP) GT SCH (06:28)
[2023-09-02 09:32] LABS: BASO % 0.8 % (0-2.0); EOS % 1.4 % (0-4.5); HEMATOCRIT 24.8 % (32.4-45.2); HEMOGLOBIN 7.8 GM/dL (10.7-15.3); LYMPH % 20.7 % (8-40); MCH 28.6 pg (25.7-33.7); MCHC 31.4 g/dl (32.0-36.0); MEAN CELL VOLUME 90.9 fl (80-96); MEAN PLT VOLUME 7.2 fl (7.5-11.1); MONO % 13.3 % (3.8-10.2); NEUT % 63.8 % (42.8-82.8); PLATELET COUNT 372 10^3/uL (134-434); RBC 2.73 M/mm3 (3.60-5.2); RDW 18.2 % (11.6-15.6); WHITE BLOOD COUNT 7.4 K/mm3 (4.0-10.0)
[2023-09-02 09:50] LABS: POTASSIUM 3.8 mmol/L (3.5-5.1)
[2023-09-02 09:52] LABS: CALCIUM 8.2 mg/dL (8.5-10.1)
[2023-09-02 09:53] LABS: ALBUMIN 1.3 g/dl (3.4-5.0); BLOOD UREA NITROGEN 39.1 mg/dL (7-18); MAGNESIUM 2.1 mg/dL (1.8-2.4)
[2023-09-02 09:56] LABS: CREATININE 0.9 mg/dL (0.55-1.3); PHOSPHOROUS 3.7 mg/dL (2.5-4.9)
[2023-09-02 09:57] LABS: BILIRUBIN,TOTAL 0.6 mg/dL (0.2-1)
[2023-09-02 09:58] LABS: TOT PROT 6.1 g/dl (6.4-8.2)
[2023-09-02] MEDS: AMINO ACIDS/PROTEIN HYDROLYS 30 ML LIQUID.PKT GT SCH (16:43)
[2023-09-03 07:52] LABS: BASO % 0.6 % (0-2.0); EOS % 1.5 % (0-4.5); HEMATOCRIT 24.9 % (32.4-45.2); LYMPH % 21.2 % (8-40); MCH 28.5 pg (25.7-33.7); MCHC 31.9 g/dl (32.0-36.0); MEAN CELL VOLUME 89.4 fl (80-96); MEAN PLT VOLUME 6.9 fl (7.5-11.1); MONO % 16.3 % (3.8-10.2); NEUT % 60.4 % (42.8-82.8); PLATELET COUNT 371 10^3/uL (134-434); RBC 2.79 M/mm3 (3.60-5.2); RDW 17.3 % (11.6-15.6); WHITE BLOOD COUNT 6.9 K/mm3 (4.0-10.0)
[2023-09-03 08:06] LABS: POTASSIUM 3.5 mmol/L (3.5-5.1)
[2023-09-03 08:13] LABS: CALCIUM 8.4 mg/dL (8.5-10.1)
[2023-09-03 08:14] LABS: BLOOD UREA NITROGEN 38.1 mg/dL (7-18)
[2023-09-03 08:17] LABS: CREATININE 0.8 mg/dL (0.55-1.3)
[2023-09-03] MEDS: BANATROL PLUS POWDER PACKET PO SCH (16:10)
[2023-09-03 18:52] VITALS: BP 115/57; PULSE 98; RESP 17; TEMP 99
== END 2023-09-03 18:50 | DRG 208 ==
LOC: JER 18:21 → JERBED 09-01 00:25 → J5S 09-01 03:56
PROVIDERS: ADMIT Internal Medicine; ATTEND Internal Medicine
PROC: 5A1945Z Respiratory Ventilation, 24-96 Consecutive Hours (ICD-10-PCS; principal; 2023-09-01)
PROC: 30233N1 Transfusion of Nonautologous Red Blood Cells into Peripheral Vein, Percutaneous Approach (ICD-10-PCS; 2023-09-01)
DX: J18.9 Pneumonia, unspecified organism (principal); I50.23 Acute on chronic systolic (congestive) heart failure; I13.0 Hypertensive heart and chronic kidney disease with heart failure and stage 1 through stage 4 chronic kidney disease, or unspecified chronic kidney disease; J96.10 Chronic respiratory failure, unspecified whether with hypoxia or hypercapnia; Z99.11 Dependence on respirator [ventilator] status; D64.9 Anemia, unspecified; L89.300 Pressure ulcer of unspecified buttock, unstageable; G40.909 Epilepsy, unspecified, not intractable, without status epilepticus; E11.22 Type 2 diabetes mellitus with diabetic chronic kidney disease; J45.909 Unspecified asthma, uncomplicated; F03.90 Unspecified dementia, unspecified severity, without behavioral disturbance, psychotic disturbance, mood disturbance, and anxiety; E03.9 Hypothyroidism, unspecified; N18.9 Chronic kidney disease, unspecified; Z93.1 Gastrostomy status; E78.5 Hyperlipidemia, unspecified; E87.70 Fluid overload, unspecified; Z93.0 Tracheostomy status
CPT/HCPCS: 0241U-QW; 36415; 36430; 71045-TC-FY; 80048; 80053; 82272; 82728; 82962; 83540; 83550; 83735; 83880; 84100; 84466; 84484; 85025; 85045; 85610; 85730; 86850; 86900; 86901; 86922; 87081; 93005; 93010; 94002; 99285-25; P9038; P9058

== ENCOUNTER 2023-10-11 16:05 | Inpatient (IN) | payer OTHER, BC ==
[2023-10-11] MEDS ORDERED: ACETAMINOPHEN 650 MG/20.3 ML ORAL SOLUTION (CUPS) ONE (22:00)
[2023-10-11] MEDS: levETIRAcetam 500 MG/5 ML ORAL SOLUTION (UNIT-DOSE CUPS) GT SCH (22:34)
[2023-10-11] MEDS: ACETAMINOPHEN 650 MG/20.3 ML ORAL SOLUTION (CUPS) GT SCH (22:34)
[2023-10-12] MEDS: ARTIFICIAL TEARS OPHTHALMIC DROPS OU SCH (00:11)
[2023-10-12 08:01] VITALS: RESP 14
[2023-10-12 13:02] VITALS: BMI 23.7
[2023-10-12 14:45] VITALS: PULSE 87
[2023-10-12 15:13] VITALS: BP 111/66; TEMP 99.1
== END 2023-10-12 18:11 | DRG 951 ==
LOC: JER 16:05 → JERBED 17:25 → J5S 10-12 01:07 → OBSVTOIN 10-12 09:38
PROVIDERS: ADMIT Internal Medicine; ATTEND Internal Medicine
DX: Z51.5 Encounter for palliative care (principal); I13.0 Hypertensive heart and chronic kidney disease with heart failure and stage 1 through stage 4 chronic kidney disease, or unspecified chronic kidney disease; I50.22 Chronic systolic (congestive) heart failure; J96.11 Chronic respiratory failure with hypoxia; G93.1 Anoxic brain damage, not elsewhere classified; E78.5 Hyperlipidemia, unspecified; E03.9 Hypothyroidism, unspecified; G40.909 Epilepsy, unspecified, not intractable, without status epilepticus; E11.22 Type 2 diabetes mellitus with diabetic chronic kidney disease; F03.90 Unspecified dementia, unspecified severity, without behavioral disturbance, psychotic disturbance, mood disturbance, and anxiety; N18.9 Chronic kidney disease, unspecified; I44.7 Left bundle-branch block, unspecified; Z93.0 Tracheostomy status; Z93.1 Gastrostomy status; R62.7 Adult failure to thrive; Z68.23 Body mass index [BMI] 23.0-23.9, adult; I48.91 Unspecified atrial fibrillation; D64.9 Anemia, unspecified; R47.02 Dysphasia; L89.150 Pressure ulcer of sacral region, unstageable
CPT/HCPCS: 93005; 93010; 94002; 99285-25; G0378

== ENCOUNTER 2023-10-19 09:51 | Inpatient (IN) | payer OTHER, BC ==
[2023-10-19] MEDS ORDERED: MORPHINE SULFATE/0.9% NACL/PF 100 MG/100 ML BAG ONE (17:03)
[2023-10-19] MEDS ORDERED: HEPARIN NA (PORCINE) 5,000 UNITS/ML 1ML VIAL ONE (18:19)
[2023-10-19] MEDS: MORPHINE SULFATE/0.9% NACL/PF 100 MG/100 ML BAG IVPB SCH (22:20)
[2023-10-19] MEDS: HEPARIN NA (PORCINE) 5,000 UNITS/ML 1ML VIAL SQ SCH (22:22)
[2023-10-21] MEDS: SCOPOLAMINE HYDROBROMIDE 1 PATCH PATCH.TD72 TD SCH (11:53)
[2023-10-23 10:35] VITALS: BMI 27.6
[2023-10-24 02:10] VITALS: BP 115/70
[2023-10-24 11:24] VITALS: PULSE 108
[2023-10-24 15:02] VITALS: RESP 12; TEMP 97.8
== END 2023-10-24 15:05 | disposition hospice, inpatient (51) | DRG 951 ==
LOC: JER 09:51 → JERBED 11:23 → OBSVTOIN 13:58 → J5S 19:51
PROVIDERS: ADMIT Internal Medicine; ATTEND Internal Medicine
PROC: 5A1935Z Respiratory Ventilation, Less than 24 Consecutive Hours (ICD-10-PCS; principal; 2023-10-19)
DX: Z51.5 Encounter for palliative care (principal); G93.1 Anoxic brain damage, not elsewhere classified; I13.0 Hypertensive heart and chronic kidney disease with heart failure and stage 1 through stage 4 chronic kidney disease, or unspecified chronic kidney disease; I50.22 Chronic systolic (congestive) heart failure; J96.11 Chronic respiratory failure with hypoxia; I48.91 Unspecified atrial fibrillation; G40.909 Epilepsy, unspecified, not intractable, without status epilepticus; F03.90 Unspecified dementia, unspecified severity, without behavioral disturbance, psychotic disturbance, mood disturbance, and anxiety; E78.5 Hyperlipidemia, unspecified; E03.9 Hypothyroidism, unspecified; N18.9 Chronic kidney disease, unspecified; E11.22 Type 2 diabetes mellitus with diabetic chronic kidney disease; R13.10 Dysphagia, unspecified; L89.150 Pressure ulcer of sacral region, unstageable; E66.9 Obesity, unspecified; Z68.27 Body mass index [BMI] 27.0-27.9, adult; Z93.0 Tracheostomy status; Z71.89 Other specified counseling
CPT/HCPCS: 93005; 93010; 99285-25; G0378; J1644